=== PATIENT | female | born 1940 | race Caucasian/White ===

== ENCOUNTER 2018-02-03 11:24 | Inpatient (IN) | payer MEDICARE, BC ==
[~2018-02-03] VITALS: Ht 165.1 cm; Wt 71.0 kg
[~2018-02-03 11:24] MED LIST: ASPI-1265 PO; CALCIUM PO; LEVO75TA57 PO; LOSA1TAB36 PO; MAGNESIUM PO; MULT-1074 PO; OMEG1CAP46 PO; [UNRECOGNIZED DRUG - CODE] MC
[2018-02-03] MEDS ORDERED: morphine 4 MG/ML inj SYRINge IV ONE ×2 (11:40→12:20)
[2018-02-03] MEDS ORDERED: normal saline 1000ml 1,000 ML IV ONE (11:40)
[2018-02-03] MEDS ORDERED: LORazepam 2 mg/ml vial IV ONE (12:15)
[2018-02-03 12:34] LABS: BASOPHILS # (AUTO) 0.1 X10'3 (0-0.2); BASOPHILS % (AUTO) 0.7 % (0-1); EOSINOPHILS # (AUTO) 0.2 X10'3 (0-0.9); HEMATOCRIT 36.4 % (35.0-45.0); HEMOGLOBIN 12.8 g/dl (12.0-16.0); LYMPHOCYTES # (AUTO) 2.5 X10'3 (1.1-4.8); LYMPHOCYTES % (AUTO) 30.4 % (21-51); MEAN CORPUSCULAR HEMOGLOBIN 33.2 PG (27.0-31.0); MEAN CORPUSCULAR HGB CONC 35.2 % (33.0-36.5); MEAN CORPUSCULAR VOLUME 94.5 FL (78-98); MONOCYTES # (AUTO) 0.6 X10'3 (0-0.9); MONOCYTES % (AUTO) 7.1 % (2-12); NEUTROPHILS # (AUTO) 4.9 X10'3 (1.8-7.7); NEUTROPHILS % (AUTO) 58.8 % (42-75); PLATELET COUNT 279 X10'3 (140-440); RED BLOOD COUNT 3.85 X10'6 (4.20-5.60); RED CELL DISTRIBUTION WIDTH 13.2 % (11.5-14.5); WHITE BLOOD COUNT 8.4 X10'3 (4.5-11.0)
[2018-02-03 12:39] LABS: INR 0.9 INR; PROTHROMBIN TIME 9.2 SECONDS (9.0-12.0)
[2018-02-03 12:48] LABS: ALANINE AMINOTRANSFERASE 38 U/L (12-78); ALBUMIN 3.4 G/DL (3.4-5.0); ALBUMIN/GLOBULIN RATIO 0.9 (1.1-1.5); ALKALINE PHOSPHATASE 93 IU/L (46-116); ANION GAP 9 (8-16); ASPARTATE AMINO TRANSFERASE 27 U/L (10-37); BILIRUBIN,TOTAL 0.6 MG/DL (0.1-1.0); BLOOD UREA NITROGEN 21 MG/DL (7-18); BUN/CREATININE RATIO 23.1 (6.6-38.0); CALCIUM 8.7 MG/DL (8.5-10.1); CHLORIDE 100 MMOL/L (99-107); CREATININE 0.91 MG/DL (0.40-0.90); GLUCOSE 111 MG/DL (70-104); SODIUM 136 MMOL/L (135-145); TOTAL CARBON DIOXIDE 27.4 MMOL/L (24-32); TOTAL PROTEIN 7.1 G/DL (6.4-8.2); eGFR 60 ML/MIN
[2018-02-03] MEDS ORDERED: magnesium 2GM in 50ml NS 50 ML IV PRN (13:10)
[2018-02-03] MEDS ORDERED: magnesium 4gm in 100ml NS 100 ML IV PRN (13:10)
[2018-02-03] MEDS ORDERED: magnesium Cl slow-release 64mg tablet PO PRN (13:10)
[2018-02-03] MEDS ORDERED: potassium Cl 40MEQ/NS 500ml 500 ML IV PRN ×2 (13:10)
[2018-02-03] MEDS ORDERED: potassium Cl 20 mEq SR tablet PO PRN ×2 (13:10)
[2018-02-03] MEDS ORDERED: acetaminophen 325mg tablet PO PRN (13:10)
[2018-02-03] MEDS ORDERED: magnesium hydroxide 30ml (MOM) UD suspension PO PRN (13:10)
[2018-02-03] MEDS ORDERED: mag hydrox/Alum hydrox/simeth 30ml oral suspension PO PRN (13:10)
[2018-02-03] MEDS ORDERED: morphine 2 MG/ML inj. syringe IV PRN ×2 (13:10)
[2018-02-03] MEDS ORDERED: morphine 4 MG/ML inj SYRINge IV PRN ×2 (13:45)
[2018-02-03] MEDS: potassium cl 20mEq in 1/2 NS 1,000 ML IV SCH (16:12)
[2018-02-03 17:15] VITALS: BP 137/53
[2018-02-03] MEDS: enoxaparin 40mg/0.4ml syringe SUBCUT SCH (18:25)
[2018-02-03] MEDS: docusate sod 100mg capsule PO SCH (20:00)
[2018-02-03] MEDS: morphine 4 MG/ML inj SYRINge IV PRN (20:33)
[2018-02-03 22:00] VITALS: BP 131/77
[2018-02-04] VITALS (18 sets, daily range): BP systolic 130–171; BP diastolic 60–87
[2018-02-04] MEDS: potassium cl 20mEq in 1/2 NS 1,000 ML IV SCH ×3 (02:16→23:40)
[2018-02-04] MEDS: morphine 4 MG/ML inj SYRINge IV PRN ×4 (02:20→10:46)
[2018-02-04] MEDS ORDERED: albuterol 2.5 MG/3 ML nebule NEB PRN (05:35)
[2018-02-04] MEDS ORDERED: pantoprazole 40 MG vial IV ONE (05:35)
[2018-02-04 06:43] LABS: BASOPHILS # (AUTO) 0.1 X10'3 (0-0.2); BASOPHILS % (AUTO) 0.5 % (0-1); EOSINOPHILS # (AUTO) 0.2 X10'3 (0-0.9); EOSINOPHILS % (AUTO) 1.9 % (0-6); HEMATOCRIT 33.7 % (35.0-45.0); HEMOGLOBIN 11.7 g/dl (12.0-16.0); LYMPHOCYTES % (AUTO) 28.6 % (21-51); MEAN CORPUSCULAR HGB CONC 34.6 % (33.0-36.5); MEAN CORPUSCULAR VOLUME 95.3 FL (78-98); MEAN PLATELET VOLUME 7.6 FL (7.4-10.4); MONOCYTES # (AUTO) 0.8 X10'3 (0-0.9); MONOCYTES % (AUTO) 7.6 % (2-12); NEUTROPHILS # (AUTO) 6.5 X10'3 (1.8-7.7); NEUTROPHILS % (AUTO) 61.4 % (42-75); PLATELET COUNT 240 X10'3 (140-440); RED BLOOD COUNT 3.54 X10'6 (4.20-5.60); WHITE BLOOD COUNT 10.6 X10'3 (4.5-11.0)
[2018-02-04 07:08] LABS: ALANINE AMINOTRANSFERASE 32 U/L (12-78); ALBUMIN 3.1 G/DL (3.4-5.0); ALBUMIN/GLOBULIN RATIO 0.9 (1.1-1.5); ALKALINE PHOSPHATASE 85 IU/L (46-116); ANION GAP 11 (8-16); ASPARTATE AMINO TRANSFERASE 24 U/L (10-37); BILIRUBIN,TOTAL 0.8 MG/DL (0.1-1.0); BLOOD UREA NITROGEN 13 MG/DL (7-18); BUN/CREATININE RATIO 13.7 (6.6-38.0); CALCIUM 8.4 MG/DL (8.5-10.1); CHLORIDE 99 MMOL/L (99-107); CREATININE 0.95 MG/DL (0.40-0.90); GLUCOSE 105 MG/DL (70-104); MAGNESIUM 1.8 MG/DL (1.5-2.4); POTASSIUM 3.8 MMOL/L (3.5-5.1); SODIUM 134 MMOL/L (135-145); TOTAL CARBON DIOXIDE 24.1 MMOL/L (24-32); TOTAL PROTEIN 6.7 G/DL (6.4-8.2); eGFR 57 ML/MIN
[2018-02-04] MEDS: losartan 50mg tablet PO SCH (07:49)
[2018-02-04] MEDS: levoTHYROXINE 75mcg tablet PO SCH (07:49)
[2018-02-04] MEDS ORDERED: HYDROCHLOROTHIAZIDE PO SCH (08:00)
[2018-02-04] MEDS: OMEGA-3/DHA/EPA/FISH OIL 1 EACH CAPSULE.DR PO SCH (08:00)
[2018-02-04] MEDS ORDERED: CALCIUM 1200 MG PO SCH (08:00)
[2018-02-04] MEDS: aspirin 81mg tab.chew PO SCH (08:00)
[2018-02-04] MEDS: [UNRECOGNIZED DRUG - OTHER] PO SCH (08:00)
[2018-02-04] MEDS: docusate sod 100mg capsule PO SCH ×2 (08:00→20:36)
[2018-02-04] MEDS ORDERED: MAGNESIUM 300 MG PO SCH (08:00)
[2018-02-04] MEDS ORDERED: OMEGA PO SCH (08:00)
[2018-02-04] MEDS ORDERED: BIOTIN MC SCH (08:00)
[2018-02-04] MEDS: K and/or MAG REPLACEMENT MC SCH (08:00)
[2018-02-04] MEDS ORDERED: FISH OIL PO SCH (08:00)
[2018-02-04] MEDS: HYDROchlorothiazide 12.5mg capsule PO SCH (08:00)
[2018-02-04] MEDS: magnesium oxide 400mg tablet PO SCH (08:00)
[2018-02-04] MEDS ORDERED: non-formulary drug (Multivitamin (Multi-Vitamin Daily) 1 EACH) PO SCH (08:00)
[2018-02-04] MEDS ORDERED: FATTY ACIDS PO SCH (08:00)
[2018-02-04] MEDS: calcium carbonate 500mg tablet PO SCH (08:00)
[2018-02-04] MEDS: multivitamins, therapeutics tablet PO SCH (08:00)
[2018-02-04] MEDS ORDERED: LOSARTAN PO SCH (08:00)
[2018-02-04] MEDS: ondansetron/PF 4mg/2ml inj IV PRN ×2 (08:02→20:38)
[2018-02-04] MEDS ORDERED: BUPIVAcaine 0.5% inj/PF 30 ML ONE (12:30)
[2018-02-04] MEDS ORDERED: ceFAZolin 1000mg inj ONE (12:30)
[2018-02-04] MEDS ORDERED: cefazolin 1gm/NS 100mL 100 ML IV ONE (14:00)
[2018-02-04] MEDS ORDERED: ringers solution, lacted 1,000 ML IV SCH (14:13)
[2018-02-04] MEDS ORDERED: hydrALAZINE 20mg/ml inj. IV PRN (14:15)
[2018-02-04] MEDS ORDERED: labetalol 5mg/ml 20ml inj. IV PRN (14:15)
[2018-02-04] MEDS ORDERED: morphine 4 MG/ML inj SYRINge IV PRN ×2 (14:15)
[2018-02-04] MEDS ORDERED: fentaNYL/PF 50MCG/1 ML 2ML syringe IV PRN ×2 (14:15)
[2018-02-04] MEDS ORDERED: ondansetron/PF 4mg/2ml inj IV PRN (14:15)
[2018-02-04] MEDS ORDERED: ROPIVAcaine 0.5% (5mg/ml) 30ml vial IJ ONE (14:18)
[2018-02-04] MEDS ORDERED: dexamethasone sod phosphate 4mg/ml inj. ONE (14:22)
[2018-02-04] MEDS ORDERED: sevoflurane 250ml liquid IH ONE (14:22)
[2018-02-04] MEDS ORDERED: fentaNYL/PF 50MCG/1 ML 2ML syringe ONE (14:34)
[2018-02-04] MEDS ORDERED: midazolam 2 mg/2 ml injection ONE (14:35)
[2018-02-04] MEDS ORDERED: LIDOcaine 2% (20mg/ml) 5ml vial ONE (14:36)
[2018-02-04] MEDS ORDERED: propofol inj 20 ML IV ONE (14:36)
[2018-02-04] MEDS ORDERED: ondansetron/PF 4mg/2ml inj ONE (14:36)
[2018-02-04] MEDS ORDERED: vancomycin 1,000mg inj ONE (14:53)
[2018-02-04] MEDS ORDERED: ROPIVAcaine 0.5% (5mg/ml) 30ml vial ONE (15:15)
[2018-02-04] MEDS ORDERED: HYDROcodone/acetaminophen 10/325mg tab PO PRN (17:20)
[2018-02-04] MEDS ORDERED: acetaminophen 325mg tablet PO PRN ×2 (17:20)
[2018-02-04] MEDS ORDERED: lactobacillus rhamnosus 10,000 MMU CELLS/CAPSULE PO SCH (20:00)
[2018-02-04] MEDS: simethicone 125mg capsule PO SCH (20:36)
[2018-02-04] MEDS: HYDROcodone/acetaminophen 10/325mg tab PO PRN (20:36)
[2018-02-04] MEDS: cefazolin 1gm/NS 100mL 100 ML IV SCH (23:40)
[2018-02-05] MEDS: HYDROcodone/acetaminophen 10/325mg tab PO PRN ×4 (01:27→20:32)
[2018-02-05 03:13] VITALS: BP 119/66
[2018-02-05] MEDS: potassium cl 20mEq in 1/2 NS 1,000 ML IV SCH ×2 (06:35→15:10)
[2018-02-05 06:49] VITALS: BP 112/40
[2018-02-05] MEDS: K and/or MAG REPLACEMENT MC SCH (08:00)
[2018-02-05 08:06] LABS: BASOPHILS % (AUTO) 0.3 % (0-1); EOSINOPHILS # (AUTO) 0.2 X10'3 (0-0.9); EOSINOPHILS % (AUTO) 1.5 % (0-6); HEMATOCRIT 27.6 % (35.0-45.0); HEMOGLOBIN 9.6 g/dl (12.0-16.0); LYMPHOCYTES # (AUTO) 1.4 X10'3 (1.1-4.8); LYMPHOCYTES % (AUTO) 13.9 % (21-51); MEAN CORPUSCULAR HEMOGLOBIN 32.9 PG (27.0-31.0); MEAN CORPUSCULAR HGB CONC 34.8 % (33.0-36.5); MEAN CORPUSCULAR VOLUME 94.6 FL (78-98); MONOCYTES # (AUTO) 0.9 X10'3 (0-0.9); MONOCYTES % (AUTO) 8.7 % (2-12); NEUTROPHILS # (AUTO) 7.7 X10'3 (1.8-7.7); NEUTROPHILS % (AUTO) 75.6 % (42-75); PLATELET COUNT 204 X10'3 (140-440); RED BLOOD COUNT 2.91 X10'6 (4.20-5.60); RED CELL DISTRIBUTION WIDTH 13.2 % (11.5-14.5); WHITE BLOOD COUNT 10.2 X10'3 (4.5-11.0)
[2018-02-05 08:18] LABS: ALANINE AMINOTRANSFERASE 26 U/L (12-78); ALBUMIN 2.6 G/DL (3.4-5.0); ALBUMIN/GLOBULIN RATIO 0.8 (1.1-1.5); ALKALINE PHOSPHATASE 65 IU/L (46-116); ANION GAP 9 (8-16); ASPARTATE AMINO TRANSFERASE 26 U/L (10-37); BILIRUBIN,TOTAL 0.7 MG/DL (0.1-1.0); BLOOD UREA NITROGEN 16 MG/DL (7-18); BUN/CREATININE RATIO 17.6 (6.6-38.0); CALCIUM 8.1 MG/DL (8.5-10.1); CHLORIDE 103 MMOL/L (99-107); CREATININE 0.91 MG/DL (0.40-0.90); GLUCOSE 112 MG/DL (70-104); MAGNESIUM 1.9 MG/DL (1.5-2.4); POTASSIUM 4.7 MMOL/L (3.5-5.1); SODIUM 136 MMOL/L (135-145); TOTAL CARBON DIOXIDE 23.7 MMOL/L (24-32); eGFR 60 ML/MIN
[2018-02-05] MEDS: losartan 50mg tablet PO SCH (08:35)
[2018-02-05] MEDS: magnesium oxide 400mg tablet PO SCH (08:35)
[2018-02-05] MEDS: OMEGA-3/DHA/EPA/FISH OIL 1 EACH CAPSULE.DR PO SCH (08:35)
[2018-02-05] MEDS: calcium carbonate 500mg tablet PO SCH (08:35)
[2018-02-05] MEDS: docusate sod 100mg capsule PO SCH ×2 (08:35→20:33)
[2018-02-05] MEDS: HYDROchlorothiazide 12.5mg capsule PO SCH (08:35)
[2018-02-05] MEDS: multivitamins, therapeutics tablet PO SCH (08:36)
[2018-02-05] MEDS: simethicone 125mg capsule PO SCH ×3 (08:36→20:31)
[2018-02-05] MEDS: cefazolin 1gm/NS 100mL 100 ML IV SCH ×2 (08:36→15:46)
[2018-02-05] MEDS: aspirin 81mg tab.chew PO SCH (08:36)
[2018-02-05] MEDS: enoxaparin 40mg/0.4ml syringe SUBCUT SCH (08:36)
[2018-02-05] MEDS: levoTHYROXINE 75mcg tablet PO SCH (08:36)
[2018-02-05] MEDS: [UNRECOGNIZED DRUG - OTHER] PO SCH (09:19)
[2018-02-05 10:00] VITALS: BP 98/41
[2018-02-05 18:00] VITALS: BP 139/53
[2018-02-05] MEDS: lactobacillus rhamnosus 10,000 MMU CELLS/CAPSULE PO SCH (20:33)
[2018-02-05 22:00] VITALS: BP 127/47
[2018-02-06] MEDS: cefazolin 1gm/NS 100mL 100 ML IV SCH (00:07)
[2018-02-06] MEDS: HYDROcodone/acetaminophen 10/325mg tab PO PRN ×2 (00:08→12:45)
[2018-02-06] MEDS: potassium cl 20mEq in 1/2 NS 1,000 ML IV SCH ×2 (04:10→11:10)
[2018-02-06 05:38] LABS: BASOPHILS # (AUTO) 0.1 X10'3 (0-0.2); BASOPHILS % (AUTO) 0.7 % (0-1); EOSINOPHILS # (AUTO) 0.3 X10'3 (0-0.9); EOSINOPHILS % (AUTO) 3.2 % (0-6); HEMATOCRIT 23.6 % (35.0-45.0); HEMOGLOBIN 8.3 g/dl (12.0-16.0); LYMPHOCYTES # (AUTO) 2.6 X10'3 (1.1-4.8); LYMPHOCYTES % (AUTO) 29.1 % (21-51); MEAN CORPUSCULAR HEMOGLOBIN 33.3 PG (27.0-31.0); MEAN CORPUSCULAR HGB CONC 35.2 % (33.0-36.5); MEAN CORPUSCULAR VOLUME 94.8 FL (78-98); MEAN PLATELET VOLUME 7.9 FL (7.4-10.4); MONOCYTES # (AUTO) 0.9 X10'3 (0-0.9); MONOCYTES % (AUTO) 10.1 % (2-12); NEUTROPHILS % (AUTO) 56.9 % (42-75); PLATELET COUNT 190 X10'3 (140-440); RED BLOOD COUNT 2.49 X10'6 (4.20-5.60); WHITE BLOOD COUNT 8.8 X10'3 (4.5-11.0)
[2018-02-06 06:00] VITALS: BP 93/61
[2018-02-06 06:09] LABS: ALANINE AMINOTRANSFERASE 26 U/L (12-78); ALBUMIN 2.4 G/DL (3.4-5.0); ALBUMIN/GLOBULIN RATIO 0.8 (1.1-1.5); ALKALINE PHOSPHATASE 63 IU/L (46-116); ANION GAP 8 (8-16); ASPARTATE AMINO TRANSFERASE 33 U/L (10-37); BILIRUBIN,TOTAL 0.4 MG/DL (0.1-1.0); BLOOD UREA NITROGEN 22 MG/DL (7-18); BUN/CREATININE RATIO 19.6 (6.6-38.0); CHLORIDE 103 MMOL/L (99-107); CREATININE 1.12 MG/DL (0.40-0.90); GLUCOSE 101 MG/DL (70-104); POTASSIUM 4.6 MMOL/L (3.5-5.1); SODIUM 136 MMOL/L (135-145); TOTAL CARBON DIOXIDE 25.4 MMOL/L (24-32); TOTAL PROTEIN 5.5 G/DL (6.4-8.2); eGFR 47 ML/MIN
[2018-02-06] MEDS: [UNRECOGNIZED DRUG - OTHER] PO SCH (08:00)
[2018-02-06] MEDS: losartan 50mg tablet PO SCH (08:00)
[2018-02-06] MEDS: HYDROchlorothiazide 12.5mg capsule PO SCH (08:00)
[2018-02-06] MEDS: K and/or MAG REPLACEMENT MC SCH (08:09)
[2018-02-06] MEDS: OMEGA-3/DHA/EPA/FISH OIL 1 EACH CAPSULE.DR PO SCH (08:16)
[2018-02-06] MEDS: lactobacillus rhamnosus 10,000 MMU CELLS/CAPSULE PO SCH (08:16)
[2018-02-06] MEDS: docusate sod 100mg capsule PO SCH (08:16)
[2018-02-06] MEDS: aspirin 81mg tab.chew PO SCH (08:16)
[2018-02-06] MEDS: magnesium oxide 400mg tablet PO SCH (08:16)
[2018-02-06] MEDS: levoTHYROXINE 75mcg tablet PO SCH (08:17)
[2018-02-06] MEDS: simethicone 125mg capsule PO SCH ×2 (08:17→13:00)
[2018-02-06] MEDS: calcium carbonate 500mg tablet PO SCH (08:17)
[2018-02-06] MEDS: multivitamins, therapeutics tablet PO SCH (08:17)
[2018-02-06] MEDS: enoxaparin 40mg/0.4ml syringe SUBCUT SCH (08:23)
[2018-02-06 10:00] VITALS: BP 121/50
== END 2018-02-06 17:20 | DRG 481 ==
LOC: ER 11:25 → ED HOLD 13:10 → ORTHO 4S 16:45
PROVIDERS: ADMIT Internal Medicine; ATTEND Family Medicine
PROC: 3E0T3BZ Introduction of Anesthetic Agent into Peripheral Nerves and Plexi, Percutaneous Approach (ICD-10-PCS; 2018-02-04)
PROC: BQ101ZZ Fluoroscopy of Right Hip using Low Osmolar Contrast (ICD-10-PCS; 2018-02-04)
PROC: 0QSB04Z Reposition Right Lower Femur with Internal Fixation Device, Open Approach (ICD-10-PCS; principal; 2018-02-04 14:22)
DX: S72.141A Displaced intertrochanteric fracture of right femur, initial encounter for closed fracture (principal); D62 Acute posthemorrhagic anemia; E03.9 Hypothyroidism, unspecified; S72.21XA Displaced subtrochanteric fracture of right femur, initial encounter for closed fracture; E78.5 Hyperlipidemia, unspecified; G89.29 Other chronic pain; R14.3 Flatulence; I10 Essential (primary) hypertension; M54.41 Lumbago with sciatica, right side; Z79.899 Other long term (current) drug therapy; Z79.82 Long term (current) use of aspirin; Z87.891 Personal history of nicotine dependence; W01.0XXA Fall on same level from slipping, tripping and stumbling without subsequent striking against object, initial encounter; Y93.89 Activity, other specified; Y92.89 Other specified places as the place of occurrence of the external cause; Y99.8 Other external cause status
CPT/HCPCS: 36415; 70450; 71045; 73502; 76001; 80053; 83735; 85025; 85610; 86885; 86900; 86901; 87070; 93005; 94760; 96374; 96375; 96376; 97110; 97116; 97162; 97530; 99285; A4315; A6257; A6449; A7000; C1758; C9113; J0690; J1100; J1650; J2001; J2060; J2250; J2270; J2405; J2704; J2795; J3010; J3370; J3490; J7030; J7120

== ENCOUNTER → 2018-03-20 | Outpatient (CLI) | payer MEDICARE, BC | LOC: VAS 12:54 | PROVIDERS: ATTEND Family Medicine | DX: I82.441 Acute embolism and thrombosis of right tibial vein (principal); S72.001A Fracture of unspecified part of neck of right femur, initial encounter for closed fracture; M79.89 Other specified soft tissue disorders; X58.XXXA Exposure to other specified factors, initial encounter; Y93.89 Activity, other specified; Y92.89 Other specified places as the place of occurrence of the external cause; Y99.8 Other external cause status | CPT/HCPCS: 93971 ==